=== PATIENT | female | born 1940 | race Caucasian/White ===

== ENCOUNTER 2017-04-28 06:54 | Emergency (ER) | payer MEDICAID, MEDICARE, OTHER ==
[~2017-04-28] VITALS: Ht 157.5 cm; Wt 59.0 kg
[~2017-04-28 06:54] MED LIST: AMLO1TAB36; GLV25; ISOSORBIDE; OMEP20CA10; SIMV10TA6
[2017-04-28] MEDS ORDERED: MORPHINE SULFATE 4 MG/ML CPJ (NOT FOR IM USE) IV STA (07:41)
[2017-04-28] MEDS ORDERED: ONDANSETRON HCL 4MG/2ML VIAL IV STA (07:41)
[2017-04-28] MEDS ORDERED: SODIUM CHLORIDE 0.9% 1,000 ML IV ONE (07:41)
[2017-04-28 08:19] LABS: BASOPHILS % 0.6 % (0.0-2.0); EOSINOPHILS % 1.8 % (0.0-5.0); HEMATOCRIT. 35.5 % (36.0-48.0); LYMPHOCYTES % 16.5 % (20.0-50.0); MEAN CORPUSCULAR HEMOGLOBIN 28.5 pg (28.0-32.0); MEAN CORPUSCULAR VOLUME 84.6 fL (81.0-99.0); MEAN PLATELET VOLUME 7.7 fl (7.4-10.4); MONOCYTES % 5.3 % (2.0-8.0); NEUTROPHILS % 75.8 % (40.0-76.0); PLATELET 272 x1000/uL (130-400)
[2017-04-28 08:27] LABS: CHLORIDE 106 mEq/L (98-107)
[2017-04-28 08:28] LABS: PARTIAL THROMBOPLASTIN TIME 25.7 sec (24.0-34.0); PROTHROMBIN TIME 10.6 sec
[2017-04-28 08:36] LABS: CARBON DIOXIDE 27 mEq/L (21-32)
[2017-04-28 08:53] LABS: CLARITY URINE CLEAR (CLEAR); COLOR URINE YELLOW (YELLOW); GLUCOSE URINE NEGATIVE (NEGATIVE); KETONES URINE NEGATIVE (NEGATIVE); LEUKOCYTE ESTERASE URINE NEGATIVE (NEGATIVE); NITRITE URINE NEGATIVE (NEGATIVE); OCCULT BLOOD URINE NEGATIVE (NEGATIVE); PH URINE 8.5 (4.5-8.0); PROTEIN URINE NEGATIVE (NEGATIVE); SPECIFIC GRAVITY URINE 1.008 (1.005-1.030); UROBILINOGEN URINE 0.2 E.U./dL (0.2-1.0)
[2017-04-28 13:31] VITALS: BP 145/78
[2017-04-28] MEDS ORDERED: SODIUM CHLORIDE 0.9% 10ML VIAL ONE (14:42)
[2017-04-28] MEDS ORDERED: IOHEXOL-300 100 ML BOTTLE ONE (14:42)
== END 2017-04-28 13:35 | disposition home or self-care (01) ==
LOC: ER 07:29
DX: R10.13 Epigastric pain (principal); R11.2 Nausea with vomiting, unspecified; M79.1 Myalgia; G89.29 Other chronic pain; M54.9 Dorsalgia, unspecified; I10 Essential (primary) hypertension; E11.9 Type 2 diabetes mellitus without complications
CPT/HCPCS: 36415; 71010; 74177; 80053; 81003; 83605; 83690; 85025; 85610; 85730; 87040; 93005; 96361; 96374; 96375; 99285; A4216; J2270; J2405; J7030; Q9967

== ENCOUNTER 2022-04-26 14:17 | Inpatient (IN) | payer MEDICARE, MEDICAID ==
[~2022-04-26] VITALS: Ht 162.6 cm; Wt 57.7 kg
[~2022-04-26 14:17] MED LIST changes: -OMEP20CA10; +OMEP20CA14; -SIMV10TA6; +SIMV10TA97
[2022-04-26] MEDS ORDERED: MAGNESIUM/ALUMINUM HYDROXIDE/SIMETHICONE 30ML UDC PO STA (19:21)
[2022-04-26 19:32] LABS: BASOPHILS % 0.4 % (0.0-2.0); EOSINOPHILS % 0.7 % (0.0-5.0); HEMATOCRIT. 32.7 % (36.0-48.0); HEMOGLOBIN. 10.6 g/dL (12.0-16.0); LYMPHOCYTES % 24.9 % (20.0-50.0); MEAN CORPUSCULAR HEMOGLOBIN 26.1 pg (28.0-32.0); MEAN CORPUSCULAR VOLUME 80.4 fL (81.0-99.0); MEAN PLATELET VOLUME 6.7 fl (7.4-10.4); MONOCYTES % 7.1 % (2.0-8.0); NEUTROPHILS % 66.9 % (40.0-76.0); PLATELET 364 x1000/uL (130-400); RED BLOOD CELL COUNT 4.06 mill/uL (4.2-5.4); RED CELL DISTRIBUTION WIDTH 16.1 % (11.6-14.6)
[2022-04-26 19:39] LABS: CHLORIDE 84 mEq/L (98-107)
[2022-04-26] MEDS ORDERED: SODIUM CHLORIDE 0.9% 1,000 ML IV ONE (20:30)
[2022-04-26 21:56] LABS: CLARITY URINE CLEAR (CLEAR); COLOR URINE YELLOW (YELLOW); KETONES URINE TRACE (NEGATIVE); LEUKOCYTE ESTERASE URINE NEGATIVE (NEGATIVE); NITRITE URINE NEGATIVE (NEGATIVE); OCCULT BLOOD URINE NEGATIVE (NEGATIVE); PH URINE 5.5 (4.5-8.0); PROTEIN URINE NEGATIVE (NEGATIVE); SPECIFIC GRAVITY URINE 1.014 (1.005-1.030); UROBILINOGEN URINE 0.2 E.U./dL (0.2-1.0)
[2022-04-27] MEDS ORDERED: MAGNESIUM/ALUMINUM HYDROXIDE/SIMETHICONE 30ML UDC PO PRN (02:30)
[2022-04-27] MEDS ORDERED: ONDANSETRON HCL 4MG/2ML INJ IV PRN (02:30)
[2022-04-27] MEDS ORDERED: GUAIFENESIN 200MG/10ML SUGAR FREE UDC PO PRN (02:30)
[2022-04-27 02:40] VITALS: BP 155/69
[2022-04-27] MEDS: SODIUM CHLORIDE 0.9% 1,000 ML IV SCH ×2 (03:25→21:24)
[2022-04-27] MEDS: TRAMADOL 50MG TABLET PO PRN ×3 (03:26→21:25)
[2022-04-27] MEDS: PANTOPRAZOLE SODIUM 40 MG/VIAL IV SCH ×2 (03:26→08:54)
[2022-04-27] MEDS ORDERED: DEXTROSE 50% WATER 50ML SYRINGE IV PRN (03:45)
[2022-04-27] MEDS: BLOOD SUGAR DIAGNOSTIC STRIP TEST SCH ×4 (06:42→20:17)
[2022-04-27 08:00] VITALS: BP_SYST 118; BP_SYST 161; BP_DIAS 59; BP_DIAS 65
[2022-04-27] MEDS: AMLODIPINE 10MG TABLET PO SCH (08:54)
[2022-04-27] MEDS: INSULIN LISPRO 100 UNITS/ML SUBCUT SCH ×4 (08:56→21:36)
[2022-04-27] MEDS: ENOXAPARIN 40MG/0.4ML SYR SUBCUT SCH (09:00)
[2022-04-27 10:00] LABS: CHLORIDE 95 mEq/L (98-107)
[2022-04-27 10:04] LABS: HEMATOCRIT 32.8 % (36.0-48.0); MEAN CORPUSCULAR HEMOGLOBIN 26.6 pg (28.0-32.0); PLATELET 406 x1000/uL (130-400); RED BLOOD CELL COUNT 4.16 mill/uL (4.2-5.4); RED CELL DISTRIBUTION WIDTH 16.5 % (11.6-14.6)
[2022-04-27 12:00] VITALS: BP 118/59
[2022-04-27] MEDS: DOCUSATE SODIUM 100MG CAPSULE PO PRN ×2 (15:07→21:37)
[2022-04-27 15:28] LABS: SODIUM URINE RANDOM 52 mEq/L
[2022-04-27] MEDS ORDERED: LACTULOSE 20G/30ML UDC PO NR (15:45)
[2022-04-27] MEDS ORDERED: NALOXONE HCL 0.4MG/ML VIAL IV PRN (15:45)
[2022-04-27 16:00] VITALS: BP 135/50
[2022-04-27] MEDS: ACETAMINOPHEN 325MG TABLET PO PRN (17:15)
[2022-04-27 20:00] VITALS: BP 146/59
[2022-04-27] MEDS ORDERED: SILVER SULFADIAZINE 1% CREAM 25GM TOP SCH (21:00)
[2022-04-27] MEDS ORDERED: GABAPENTIN 100MG CAPSULE PO NR (22:15)
[2022-04-28] VITALS: BP 113/41
[2022-04-28] MEDS: ZOLPIDEM TARTRATE 5MG TABLET PO PRN ×2 (01:58→21:39)
[2022-04-28 04:00] VITALS: BP 125/52
[2022-04-28] MEDS: BLOOD SUGAR DIAGNOSTIC STRIP TEST SCH ×4 (06:57→21:40)
[2022-04-28 07:16] LABS: BASOPHILS % 0.4 % (0.0-2.0); HEMATOCRIT. 32.4 % (36.0-48.0); HEMOGLOBIN. 10.8 g/dL (12.0-16.0); LYMPHOCYTES % 28.1 % (20.0-50.0); MEAN CORPUSCULAR HEMOGLOBIN 26.4 pg (28.0-32.0); MEAN CORPUSCULAR VOLUME 78.9 fL (81.0-99.0); MEAN PLATELET VOLUME 6.9 fl (7.4-10.4); MONOCYTES % 9.1 % (2.0-8.0); NEUTROPHILS % 61.4 % (40.0-76.0); PLATELET 418 x1000/uL (130-400); RED BLOOD CELL COUNT 4.11 mill/uL (4.2-5.4); RED CELL DISTRIBUTION WIDTH 16.7 % (11.6-14.6)
[2022-04-28 07:30] LABS: CHLORIDE 98 mEq/L (98-107)
[2022-04-28 07:44] LABS: HDL CHOLESTEROL 67 mg/dL (40-59); LDL CHOLESTEROL 60 mg/dL (5-100)
[2022-04-28 08:00] VITALS: BP 154/65
[2022-04-28] MEDS: GABAPENTIN 300MG CAPSULE PO SCH ×2 (10:11→18:03)
[2022-04-28] MEDS: AMLODIPINE 10MG TABLET PO SCH (10:12)
[2022-04-28] MEDS: ENOXAPARIN 40MG/0.4ML SYR SUBCUT SCH (10:12)
[2022-04-28] MEDS: PANTOPRAZOLE SODIUM 40 MG/VIAL IV SCH (10:12)
[2022-04-28] MEDS: INSULIN LISPRO 100 UNITS/ML SUBCUT SCH ×4 (10:17→21:36)
[2022-04-28 12:00] VITALS: BP 145/77
[2022-04-28] MEDS ORDERED: POTASSIUM CHLORIDE 20MEQ TABLET SR PO NR (13:45)
[2022-04-28] MEDS: ALPRAZOLAM 0.25 MG TABLET PO PRN ×2 (14:52→20:48)
[2022-04-28] MEDS ORDERED: DOCUSATE SODIUM 100MG CAPSULE PO NR (15:00)
[2022-04-28 16:00] VITALS: BP 144/74
[2022-04-28] MEDS: LIDOCAINE HCL 4% CREAM 76GM TUBE TP SCH (18:49)
[2022-04-28 20:00] VITALS: BP 130/70
[2022-04-28] MEDS: ACETAMINOPHEN 325MG TABLET PO PRN (20:02)
[2022-04-29] VITALS: BP 153/55
[2022-04-29] MEDS: ALPRAZOLAM 0.25 MG TABLET PO PRN (02:42)
[2022-04-29 04:00] VITALS: BP 146/68
[2022-04-29 06:58] LABS: MEAN CORPUSCULAR HEMOGLOBIN 26.4 pg (28.0-32.0); MEAN CORPUSCULAR VOLUME 78.9 fL (81.0-99.0); PLATELET 413 x1000/uL (130-400); RED BLOOD CELL COUNT 4.18 mill/uL (4.2-5.4); RED CELL DISTRIBUTION WIDTH 16.4 % (11.6-14.6)
[2022-04-29] MEDS: BLOOD SUGAR DIAGNOSTIC STRIP TEST SCH (07:07)
[2022-04-29 07:10] LABS: CHLORIDE 97 mEq/L (98-107)
[2022-04-29] MEDS: LIDOCAINE HCL 4% CREAM 76GM TUBE TP SCH (07:10)
[2022-04-29 08:00] VITALS: BP 157/78
[2022-04-29] MEDS: PANTOPRAZOLE SODIUM 40 MG/VIAL IV SCH (09:00)
[2022-04-29] MEDS: ENOXAPARIN 40MG/0.4ML SYR SUBCUT SCH (09:24)
[2022-04-29] MEDS: GABAPENTIN 300MG CAPSULE PO SCH (09:26)
[2022-04-29] MEDS: AMLODIPINE 10MG TABLET PO SCH (09:27)
[2022-04-29] MEDS: TRAMADOL 50MG TABLET PO PRN (09:27)
[2022-04-29] MEDS: INSULIN LISPRO 100 UNITS/ML SUBCUT SCH (09:28)
[2022-04-29 12:28] VITALS: BP 149/76
== END 2022-04-29 14:05 | disposition home or self-care (01) | DRG 392 ==
LOC: ER 14:17 → MICUSO 22:27 → 6WST 04-27 02:21
PROVIDERS: ADMIT Hospitalist; ATTEND Hospitalist
PROC: 0HBMXZZ Excision of Right Foot Skin, External Approach (ICD-10-PCS; principal; 2022-04-29)
DX: K29.70 Gastritis, unspecified, without bleeding (principal); E87.1 Hypo-osmolality and hyponatremia; I10 Essential (primary) hypertension; R30.0 Dysuria; K59.00 Constipation, unspecified; M54.9 Dorsalgia, unspecified; Z66 Do not resuscitate; E78.5 Hyperlipidemia, unspecified; E11.40 Type 2 diabetes mellitus with diabetic neuropathy, unspecified; L84 Corns and callosities; S90.221A Contusion of right lesser toe(s) with damage to nail, initial encounter; X58.XXXA Exposure to other specified factors, initial encounter; Z79.899 Other long term (current) drug therapy; Z90.710 Acquired absence of both cervix and uterus; Y93.89 Activity, other specified; Y92.89 Other specified places as the place of occurrence of the external cause; Y99.8 Other external cause status; L57.0 Actinic keratosis
CPT/HCPCS: 36415; 71045; 80053; 81003; 83690; 84484; 85025; 93005; 99285; J7030; 80048; 80061; 82962; 83036; 83935; 84300; 85027; 93970; 97116; 97161; 97162; 97165; 97166; C9113; J1650; J1815